=== PATIENT | female | born 2000 | race Caucasian/White ===

== ENCOUNTER 2021-06-23 06:43 | Emergency (ER) | payer SELFPAY ==
[~2021-06-23] VITALS: Ht 158 cm; Wt 70.3 kg
[2021-06-23] MEDS ORDERED: TRZ50T (06:57)
[2021-06-23] MEDS ORDERED: BIRTH CONTROL (06:57)
[2021-06-23] MEDS ORDERED: HYDR-700 (06:57)
--- NOTE | 2021-06-23 07:07 | ED Back Pain ---
General Chief Complaint: Back Problems Stated Complaint: SEVERE BACK PAIN Nursing Triage Note: LEFT FLANK PAIN X2 WEEKS, WORSE X1 DAY. DENIES INJURY. Source of Information: Patient Exam Limitations: No Limitations History of Present Illness Date Seen by Provider: Jun 23, 2021 Time Seen by Provider: 07:02 Initial Comments Patient is a 22-year-old female who presents to the emergency department with a chief complaint of left flank pain/left back pain onset about 2 weeks ago, worsening in the last 24 hours. She is seeing a chiropractor multiple times without relief of symptoms. She is taken ibuprofen, last dose was yesterday 600 mg with minimal relief of symptoms. Patient states that she saw [facility] a couple of times and both times was told she had blood in her urine. Her last menstrual cycle was 2 months ago. She is on Seasonique and only has menstrual cycles every 3 months. She denies burning with urination or abnormal vaginal discharge. She states she has been having a little bit more frequent bowel movements. No black or bloody stools. No fevers or chills. No rashes. No injury. She has never had an operation on her abdomen or on her back. States it hurts to move. Currently rating the pain a "10". All other review of systems reviewed and negative except as stated. Location: Other (left flank) Timing/Duration: Other ( 2 weeks) Pain/Injury Location: Back (left) Modifying Factors: Worse With Movement Associated Symptoms: denies symptoms Allergies and Home Medications Allergies Coded Allergies: No Known Drug Allergies (Unverified , 06/23/21) Patient Home Medication List Home Medication List Reviewed: Yes Cyclobenzaprine HCl (Cyclobenzaprine HCl) 10 Mg Tablet, 10 MG PO Q8H PRN for muscle spasm Prescribed by: MIHAELA RIOS on 06/23/21921 Hydroxyzine HCl (Hydroxyzine HCl) 25 Mg Tablet, (Reported) Entered as Reported by: CORINA TOTH on 06/23/21656 Last Action: New Order Naproxen (Naproxen) 500 Mg Tablet.dr, 500 MG PO BID PRN for pain Prescribed by: MIHAELA RIOS on 06/23/21921 Trazodone HCl (Trazodone HCl) 50 Mg Tablet, (Reported) Entered as Reported by: CORINA TOTH on 06/23/21656 Last Action: New Order [ Control] , (Reported) Entered as Reported by: CORINA TOTH on 06/23/21656 Last Action: New Order Review of Systems Constitutional: see HPI EENTM: no symptoms reported Respiratory: no symptoms reported Cardiovascular: no symptoms reported Gastrointestinal: no symptoms reported Genitourinary: no symptoms reported : No LMP: Mar 29, 2021 Musculoskeletal: back pain (left flank - no midline tenderness) Skin: no symptoms reported Psychiatric/Neurological: No Symptoms Reported All Other Systems Reviewed Negative Unless Noted: Yes Past Ogxjlnw-Jbfcbf-Uczgxy Hx Patient Social History Tobacco Use?: No Substance use?: No Alcohol Use?: No Pt feels they are or have been: No Immunizations Up To Date First/Initial COVID19 Vaccinat: 08/17 Second COVID19 Vaccination Mando: 09/16 COVID19 Vaccine Riprap Worker: MODERNA Past Medical History Surgery/Hospitalization HX: DENIES Last Menstrual Period: Apr 24, 2021 Physical Exam Vital Signs Vital Signs - First Documented 06/23/21 06:51 Temp 36.1 Pulse 103 Resp 18 B/P (MAP) 139/81 (100) Pulse Ox 97 O2 Delivery Room Air Capillary Refill : Less Than 3 Seconds Height, Weight, BMI Height: '" Weight: lbs. oz. kg; 28.00 BMI Method: General Appearance: No Apparent Distress, Anxious (mildly) HEENT: PERRL/EOMI Neck: Normal Inspection Cardiovascular: Regular Rate, Rhythm, Tachycardia (103) Respiratory: Lungs Clear, Normal Breath Sounds, No Accessory Muscle Use, No Respiratory Distress Gastrointestinal: Normal Bowel Sounds, Non Tender, Soft Back: CVA Tenderness (L) Extremity: Normal Capillary Refill, Normal Inspection, Normal Range of Motion, Non Tender, No Calf Tenderness, Other (neg straight leg raise bilaterally) Neurologic/Psychiatric: Alert, Oriented x3, No Motor/Sensory Deficits, Normal Mood/Affect, court assistant II-XII Norm as Tested Skin: Normal Color, Warm/Dry Progress/Results/Core Measures Results/Orders Lab Results Laboratory Tests Test 06/23/21 06:54 06/23/21 08:00 Range/Units Urine Color YELLOW Urine Clarity CLEAR Urine pH 7.0 5-9 Urine Specific [place] 1.020 1.016-1.022 Urine Protein NEGATIVE NEGATIVE Urine Glucose (UA) NEGATIVE NEGATIVE Urine Ketones NEGATIVE NEGATIVE Urine Nitrite NEGATIVE NEGATIVE Urine Bilirubin NEGATIVE NEGATIVE Urine Urobilinogen 0.2 < = 1.0 MG/DL Urine Leukocyte Esterase NEGATIVE NEGATIVE Urine RBC (Auto) TRACE-I H NEGATIVE Urine RBC RARE /HPF Urine WBC RARE /HPF Urine Squamous Epithelial Cells 0-2 /HPF Urine Crystals NONE /LPF Urine Bacteria TRACE /HPF Urine Casts NONE /LPF Urine Mucus NEGATIVE /LPF Urine Culture Indicated NO White Blood Count 17.8 H 4.3-11.0 10^3/uL Red Blood Count 4.51 3.80-5.11 10^6/uL Hemoglobin 13.4 11.5-16.0 g/dL Hematocrit 41 35-52 % Mean Corpuscular Volume 92 80-99 fL Mean Corpuscular Hemoglobin 30 25-34 pg Mean Corpuscular Hemoglobin Concent 32 32-36 g/dL Red Cell Distribution Width 12.3 10.0-14.5 % Platelet Count 484 H 130-400 10^3/uL Mean Platelet Volume 9.6 9.0-12.2 fL Immature Granulocyte % (Auto) 2 % Neutrophils (%) (Auto) 53 42-75 % Lymphocytes (%) (Auto) 38 12-44 % Monocytes (%) (Auto) 4 0-12 % Eosinophils (%) (Auto) 3 0-10 % Basophils (%) (Auto) 0 0-10 % Neutrophils # (Auto) 9.4 H 1.8-7.8 10^3/uL Lymphocytes # (Auto) 6.8 H 1.0-4.0 10^3/uL Monocytes # (Auto) 0.7 0.0-1.0 10^3/uL Eosinophils # (Auto) 0.6 H 0.0-0.3 10^3/uL Basophils # (Auto) 0.1 0.0-0.1 10^3/uL Immature Granulocyte # (Auto) 0.3 H 0.0-0.1 10^3/uL Neutrophils % (Manual) 54 % Lymphocytes % (Manual) 36 % Monocytes % (Manual) 7 % Eosinophils % (Manual) 3 % Blood Morphology Comment NORMAL Sodium Level 135 135-145 MMOL/L Potassium Level 3.8 3.6-5.0 MMOL/L Chloride Level 102 98-107 MMOL/L Carbon Dioxide Level 22 21-32 MMOL/L Anion Gap 11 5-14 MMOL/L Blood Urea Nitrogen 14 7-18 MG/DL Creatinine 0.64 0.60-1.30 MG/DL Estimat Glomerular Filtration Rate 128 BUN/Creatinine Ratio 22 Glucose Level 85 70-105 MG/DL Calcium Level 9.6 8.5-10.1 MG/DL My Orders Orders - MIHAELA RIOS MD Ed Iv/Invasive Line Start (06/23/21 07:11) Cbc With Automated Diff (06/23/21 07:11) Basic Metabolic Panel (06/23/21 07:11) Ua Culture If Indicated (06/23/21 07:11) Urine Bedside (06/23/21 07:11) Abdomen/Kub 1view (06/23/21 07:11) Ct Abd/Pelvis Wo(Kidney Stone) (06/23/21 07:11) Ketorolac Injection (Toradol Injection) (06/23/21 08:15) Manual Differential (06/23/21 08:00) Medications Given in ED Current Medications Medications Dose Ordered Sig/Jovan Route Start Time Stop Time Status Last Admin Dose Admin Ketorolac Tromethamine 30 mg ONCE ONCE IVP 06/23/21 08:15 06/23/21 08:16 DC 06/23/21 08:21 30 MG Vital Signs/I&O 06/23/21 06:51 Temp 36.1 Pulse 103 Resp 18 B/P (MAP) 139/81 (100) Pulse Ox 97 O2 Delivery Room Air Blood Pressure Mean: 100 Progress Progress Note : Time: 09:18 Progress Note Patient reevaluated, feeling much better after IV Toradol. Discussed findings, leukocytosis of 17,000. No etiology discovered at this visit for her elevated white blood cell count. She could be one of the small percentage that has non- radiopaque kidney stone. I counseled her on return precautions especially worsening pain, fever, urinary changes. She is agreeable to this plan of care. We will send her home with muscle relaxers. Physician referral list. She is comfortable with this plan of care. All questions were sought and answered Diagnostic Imaging Diagonstic Imaging: Xray Comments [facility] [place], [place] NAME: DRAKE [facility]UMAN [facility] REC#: [id number] PT STATUS: REG ER : 2000 PHYSICIAN: MIHAELA RIOS MD ADMIT DATE: 06/23/21/ER Signed Date of Exam:06/23/21 ABDOMEN/KUB 1VIEW INDICATION: Left flank pain. EXAMINATION: KUB at 8:15 AM. FINDINGS: The bowel gas pattern is unremarkable. There is stool present in the ascending colon and hepatic flexure. There are no pathologic masses or calcifications. IMPRESSION: No acute abnormalities in the abdomen. Dictated by: Dictated on workstation # [id number] Dict: 06/23/21830 Trans: 06/23/21906 [id number] Interpreted by: BENITO BYRNES MD Electronically signed by: BENITO BYRNES MD 06/23/21906 Diagonstic Imaging: CT Comments [facility] [place], [place] NAME: DRAKE [facility]UMAN [facility] REC#: [id number] PT STATUS: REG ER : 2000 PHYSICIAN: MIHAELA RIOS MD ADMIT DATE: 06/23/21/ER Draft Date of Exam:06/23/21 CT ABD/PELVIS WO(KIDNEY STONE) PROCEDURE: CT urinary tract, rule out kidney stone. TECHNIQUE: Multiple contiguous axial images were obtained through the abdomen and pelvis without the use of intravenous contrast. Auto Exposure Controls were utilized during the CT exam to meet ALARA standards for radiation dose reduction. INDICATION: Bilateral flank pain. COMPARISON: No prior studies are available for comparison. The lung bases are clear. The liver and gallbladder are unremarkable. Pancreas and spleen are unremarkable. No adrenal mass is detected. No renal calculi or hydronephrosis is detected. No definite ureteral or bladder calculi are detected. Aorta is nonaneurysmal. There is moderate stool in the right colon suggestive of constipation. The appendix is visualized in the right lower quadrant and appears unremarkable. There is no free fluid or fluid collection identified. The uterus and bladder are unremarkable. No inflammatory changes are seen. IMPRESSION: 1. No evidence of urinary tract calculi or obstruction. 2. Moderate stool right colon. Features could be owing to constipation. No other abnormality is seen. Dictated on workstation # [id number] Dict: 06/23/21823 Trans: 06/23/21829 [facility] [id number] Interpreted by: NELSON BUTLER MD Electronically signed by: Departure Impression Primary Impression: Left flank pain Disposition: 01 HOME, SELF-CARE Condition: Stable Departure-Patient Inst. Decision time for Depature: 09:20 Referrals: NO,LOCAL PHYSICIAN (PCP/Family) Primary Care Physician Patient Instructions: Flank Pain (DC), LOCAL PHYSICIAN LIST Add. Discharge Instructions: Take the naproxen, 500 mg twice daily with food as needed for pain. I have also sent a prescription for a muscle relaxer to [facility]. Take this every 8 hours as needed for muscle spasm/pain. This medication will make you sleepy do not drive and take it. If you develop fever, worsening flank pain, vomiting, urinary changes please come back to the emergency room for reevaluation. You will need to follow-up with a primary care physician, the local physician referral list is also in this packet. You can buy [id number] Salonpas/lidocaine patches to place over the area of soreness. Follow packaging directions. Scripts Naproxen (Naproxen) 500 Mg Tablet. 500 MG PO BID PRN for pain, #30 TAB Prov: MIHAELA RIOS MD 06/23/21 Cyclobenzaprine HCl (Cyclobenzaprine HCl) 10 Mg Tablet 10 MG PO Q8H PRN for muscle spasm, #10 TAB Prov: MIHAELA RIOS MD 06/23/21 MIHAELA RIOS MD Jun 23, 2021 07:07
[2021-06-23 07:59] LABS: BILIRUBIN,URINE NEGATIVE (NEGATIVE); CLARITY,URINE CLEAR; COLOR,URINE YELLOW; GLUCOSE, URINE (UA) NEGATIVE (NEGATIVE); KETONES,URINE NEGATIVE (NEGATIVE); LEUKOCYTE ESTERASE ,URINE NEGATIVE (NEGATIVE); NITRITE,URINE NEGATIVE (NEGATIVE); PROTEIN,URINE NEGATIVE (NEGATIVE)
[2021-06-23] MEDS ORDERED: KETOROLAC 30 MG/ML VIAL IVP ONE (08:15)
[2021-06-23 08:18] LABS: BASOPHILS # (AUTO) 0.1 10^3/uL (0.0-0.1); BASOPHILS % (AUTO) 0 % (0-10); EOSINOPHILS # (AUTO) 0.6 10^3/uL (0.0-0.3); EOSINOPHILS % (AUTO) 3 % (0-10); HEMATOCRIT 41 % (35-52); HEMOGLOBIN 13.4 g/dL (11.5-16.0); LYMPHOCYTES # (AUTO) 6.8 10^3/uL (1.0-4.0); LYMPHOCYTES % (AUTO) 38 % (12-44); MEAN CORPUSCULAR HEMOGLOBIN 30 pg (25-34); MEAN CORPUSCULAR HGB CONC 32 g/dL (32-36); MEAN CORPUSCULAR VOLUME 92 fL (80-99); MEAN PLATELET VOLUME 9.6 fL (9.0-12.2); MONOCYTES # (AUTO) 0.7 10^3/uL (0.0-1.0); MONOCYTES % (AUTO) 4 % (0-12); NEUTROPHILS # (AUTO) 9.4 10^3/uL (1.8-7.8); NEUTROPHILS % (AUTO) 53 % (42-75); PLATELET COUNT 484 10^3/uL (130-400); WHITE BLOOD COUNT 17.8 10^3/uL (4.3-11.0)
[2021-06-23 08:19] LABS: BACTERIA,URINE TRACE /HPF; RBC,URINE RARE /HPF; SQUAMOUS EPITHELIAL CELL,UR 0-2 /HPF; WBC,URINE RARE /HPF
[2021-06-23 08:26] LABS: POTASSIUM 3.8 MMOL/L (3.6-5.0)
[2021-06-23 08:27] LABS: CALCIUM 9.6 MG/DL (8.5-10.1)
--- NOTE | 2021-06-23 08:31 | Diagnostic Imaging Report ---
PROCEDURE: CT urinary tract, rule out kidney stone. TECHNIQUE: Multiple contiguous axial images were obtained through the abdomen and pelvis without the use of intravenous contrast. Auto Exposure Controls were utilized during the CT exam to meet ALARA standards for radiation dose reduction. INDICATION: Bilateral flank pain. COMPARISON: No prior studies are available for comparison. The lung bases are clear. The liver and gallbladder are unremarkable. Pancreas and spleen are unremarkable. No adrenal mass is detected. No renal calculi or hydronephrosis is detected. No definite ureteral or bladder calculi are detected. Aorta is nonaneurysmal. There is moderate stool in the right colon suggestive of constipation. The appendix is visualized in the right lower quadrant and appears unremarkable. There is no free fluid or fluid collection identified. The uterus and bladder are unremarkable. No inflammatory changes are seen. IMPRESSION: 1. No evidence of urinary tract calculi or obstruction. 2. Moderate stool right colon. Features could be owing to constipation. No other abnormality is seen. Dictated by: Dictated on workstation # [id number]
[2021-06-23 08:32] LABS: CREATININE SERUM 0.64 MG/DL (0.60-1.30)
--- NOTE | 2021-06-23 08:35 | Diagnostic Imaging Report ---
INDICATION: Left flank pain. EXAMINATION: KUB at 8:15 AM. FINDINGS: The bowel gas pattern is unremarkable. There is stool present in the ascending colon and hepatic flexure. There are no pathologic masses or calcifications. IMPRESSION: No acute abnormalities in the abdomen. Dictated by: Dictated on workstation # [id number]
[2021-06-23 08:40] LABS: EOSINOPHILS % (MANUAL) 3 %; LYMPHOCYTES % (MANUAL) 36 %; MONOCYTES % (MANUAL) 7 %; NEUTROPHILS % (MANUAL) 54 %; RBC MORPH NORMAL
[2021-06-23] MEDS ORDERED: NAPR500T8 PO (09:22)
[2021-06-23] MEDS ORDERED: CYCL10TA25 PO (09:22)
[2021-06-23 09:41] VITALS: BP 143/78
== END 2021-06-23 09:41 | disposition home or self-care (01) ==
LOC: ER 06:47
DX: R10.9 Unspecified abdominal pain (principal)
CPT/HCPCS: 36415; 74018; 74176; 80048; 81000; 84703; 85007; 85027